=== PATIENT | male | born 1975 | race Caucasian/White ===

== ENCOUNTER 2019-11-27 15:39 | Emergency (ER) | payer MEDICAID ==
[~2019-11-27] VITALS: Ht 180.3 cm; Wt 102.3 kg
[2019-11-27 16:08] VITALS: BP 132/79
== END 2019-11-27 18:23 | disposition left against medical advice (07) ==
LOC: ER 15:39
DX: M54.9 Dorsalgia, unspecified (principal); Z53.21 Procedure and treatment not carried out due to patient leaving prior to being seen by health care provider

== ENCOUNTER 2019-11-29 21:44 | Emergency (ER) | payer MEDICAID ==
[~2019-11-29] VITALS: Ht 180.3 cm; Wt 102.3 kg
[2019-11-29] MEDS ORDERED: ketorolac tromethamine 15mg/ml inj. IM ONE (22:25)
[2019-11-29] MEDS ORDERED: orphenadrine citrate 60mg/2ml inj. IM ONE (22:25)
[2019-11-29] MEDS ORDERED: ORPH100T2 PO (22:26)
[2019-11-29] MEDS ORDERED: IBUP-1984 PO (22:26)
[2019-11-29 22:39] VITALS: BP 136/92
== END 2019-11-29 22:40 | disposition home or self-care (01) ==
LOC: ER 21:46
DX: M54.5 Low back pain (principal); G89.29 Other chronic pain; Z88.0 Allergy status to penicillin
CPT/HCPCS: 96372; 99284; J1885; J2360

== ENCOUNTER 2020-04-14 19:20 | Emergency (ER) | payer MEDICAID, OTHER ==
[~2020-04-14] VITALS: Ht 182.9 cm; Wt 97.7 kg
[~2020-04-14 19:20] MED LIST: ORPH100T2 PO
[2020-04-14 19:33] VITALS: BP 132/86
[2020-04-14] MEDS ORDERED: sulfamethoxazole/trimethoprim DS (800/160mg) tablet PO ONE (21:55)
[2020-04-14] MEDS ORDERED: SULF1TAB49 PO (21:58)
== END 2020-04-14 22:13 | disposition home or self-care (01) ==
LOC: ER 19:21
DX: L02.414 Cutaneous abscess of left upper limb (principal); M79.89 Other specified soft tissue disorders; G89.29 Other chronic pain; Z88.0 Allergy status to penicillin; Z79.2 Long term (current) use of antibiotics; Z79.899 Other long term (current) drug therapy
CPT/HCPCS: 10060; 87070; 87077; 87186; 99283

== ENCOUNTER 2025-04-25 08:45 | Outpatient (CLI) | payer MEDICAID ==
[~2025-04-25 08:45] MED LIST changes: -ORPH100T2 PO; +ORPH100T4 PO
--- NOTE | 2025-04-25 13:54 | RADIOLOGY REPORT ---
EXAM: MR MRI LUMBAR SPINE CLINICAL HISTORY: LUMBAGO WITH SCIATICA, LEFT SIDE COMPARISON: None TECHNIQUE: MRI imaging of the lumbar was performed on a MRI imaging system without intravenous contrast. FINDINGS GENERAL Multilevel disc degeneration. Alignment: Grade 1 retrolisthesis of L5 on S1. Vertebrae: Vertebral body height is well maintained without evidence of a recent compression fracture. Conus: Conus medullaris terminates at the L1 level. T12-L1: Disc desiccation. Disc extrusion. No spinal canal or neural foraminal stenosis. The facet joints are normal. L1-2: Disc desiccation. Disc bulge with superimposed central disc extrusion measured 4.9 mm in radial dimension with 4.1 mm of cranial extension. Moderate spinal canal stenosis. Severe left subarticular zone stenosis with left descending L2 nerve root compression. Mild bilateral for aminal stenosis. Facet arthrosis. L2-3: Disc desiccation. Mild disc height loss. Disc bulge with superimposed left foraminal disc extrusion measured 7.25 mm in radial dimension with 3.05 mm of caudal extension. Moderate spinal canal stenosis. Severe bilateral subarticular zone stenosis with bilateral descending L3 nerve root compression. Moderate bilateral foraminal stenosis. Facet arthrosis. L3-4: Disc desiccation and 6.75 mm disc bulge. Mild disc height loss. Moderate spinal canal stenosis. Moderate bilateral subarticular zone stenosis. Mild bilateral foraminal stenosis. Facet arthrosis. L4-5: Disc desiccation. Mild disc height loss. Disc bulge with superimposed left subarticular disc extrusion measured 9 mm in radial dimension. Severe spinal canal stenosis. Severe bilateral subarticular zone stenosis with bilateral descending L5 nerve root compression. Severe bilateral foraminal stenosis with potential bilateral exiting L4 nerve root compression. Facet arthrosis. L5-S1: Grade 1 retrolisthesis of L5 on S1 by 4.1 mm. Disc desiccation. Moderate disc height loss. Disc bulge with superimposed disc protrusion. Mild spinal canal stenosis. Severe bilateral subarticular zone stenosis with bilateral descending S1 nerve root compression. Moderate left and severe right foraminal stenosis with potential right exiting L5 nerve root compression. Facet arthrosis. IMPRESSION: 1. Multilevel disc degeneration. Multilevel spinal canal stenosis, most pronounced and severe at L4-L5. Multilevel subarticular zone stenosis, most pronounced and severe at L4-L5 with bilateral descending L5 nerve root compression. Multilevel foraminal stenosis, most pronounced and severe at L4-L5 with potential bilateral exiting L4 nerve root compression.
== END 2025-04-25 23:59 | disposition home or self-care (01) ==
LOC: MRI02 08:45
PROVIDERS: ATTEND Nurse Practitioner
DX: M51.17 Intervertebral disc disorders with radiculopathy, lumbosacral region (principal); M47.27 Other spondylosis with radiculopathy, lumbosacral region; M43.17 Spondylolisthesis, lumbosacral region; M48.07 Spinal stenosis, lumbosacral region
CPT/HCPCS: 72148